=== PATIENT | male | born 1935 | race Caucasian/White ===

== ENCOUNTER 2022-11-14 09:53 | Emergency (ER) | payer SELFPAY ==
[~2022-11-14] VITALS: Ht 170.2 cm; Wt 74.8 kg
[2022-11-14 13:45] VITALS: BP 152/87; TEMP 98; O2SAT 98
== END 2022-11-14 13:46 | disposition home or self-care (01) ==
LOC: ER 09:55
DX: R07.81 Pleurodynia (principal); N40.0 Benign prostatic hyperplasia without lower urinary tract symptoms
CPT/HCPCS: 71100-TC